=== PATIENT | female | born 1985 | race Caucasian/White ===

== ENCOUNTER 2019-02-05 12:29 | Day surgery (SDC) | payer OTHER ==
[~2019-02-05] VITALS: Ht 157.5 cm; Wt 53.3 kg
[2019-02-05 13:05] VITALS: Ht 157.5 cm; Wt 53.3 kg
[2019-02-05 13:33] VITALS: BP 99/54; PULSE 79; RESP 18
[2019-02-05] MEDS ORDERED: PROPOFOL 20 ML ONE (13:42)
[2019-02-05] MEDS ORDERED: LIDOCAINE 2% (SDV) 5 ML INJ ONE (13:42)
--- NOTE | 2019-02-05 13:42 | PREAC ---
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 on B-Marine Reported Medications [None] No Conflict Check 02/05/19 Meds reviewed: Yes Allergies Coded Allergies: No Known Allergy (Unverified , 02/05/19) Allergies Reviewed: Yes Labs/Studies Labs Reviewed: Reviewed by anesthesiologist test: Negative Pre-procedure Exam Last vitals Vital Signs Date Temp Pulse Resp B/P (MAP) Pulse Ox O2 O2 Flow FiO2 Time Delivery Rate 02/05/19 98.0 79 18 99/54 (69) 100 Room Air 13:33 Airway: Adequate mouth opening Mallampati: Mallampati I Teeth: Normal Lung: Normal Heart: Normal ASA Physical Status ASA physical status: 1 Emergency: None Planned Anesthetic General/MAC: MAC Pre-operative Attestations Prior to commencing anesthesia and surgery, the patient was re-evaluated, there was verification of: *The patient's identity *The results of appropriate recent lab work and preoperative vital signs *The above evaluation not changing prior to induction *Anesthetic plan, risk benefits, alternative and complications discussed with patient/family; questions answered; patient/family understands, accepts and wishes to proceed. GLO MORALES MD February 05, 2019 13:42
--- NOTE | 2019-02-05 13:50 | HPN ---
Date/Time of Note Date/Time of Note DATE: 02/05/19 TIME: 13:50 Interval H&P Admission Note Pt. seen H&P reviewed: No system changes CHANDA WHYTE February 05, 2019 13:50
[2019-02-05] MEDS ORDERED: KETOROLAC 30 MG INJ ONE (14:04)
--- NOTE | 2019-02-05 14:10 | PAC ---
Date/Time of Note Date/Time of Note DATE: 02/05/19 TIME: 14:10 Post-Anesthesia Notes Post-Anesthesia Note Last documented vital signs Vital Signs Date Temp Pulse Resp B/P (MAP) Pulse Ox O2 O2 Flow FiO2 Time Delivery Rate 02/05/19 98.0 79 18 99/54 (69) 100 Room Air 13:33 Activity: WNL Respiratory function: WNL Cardiovascular function: WNL Mental status: Baseline Pain reasonably controlled: Yes Hydration appropriate: Yes Nausea/Vomiting absent: Yes GLO MORALES MD February 05, 2019 14:10
[2019-02-05] MEDS ORDERED: ONDANSETRON 4 MG INJ IV PRN (14:30)
[2019-02-05] MEDS ORDERED: morphine 2 MG INJ IV PRN (14:30)
[2019-02-05 14:36] VITALS: BP 95/57; PULSE 63; RESP 18
== END 2019-02-05 15:03 | disposition home or self-care (01) ==
LOC: GIL 12:29
PROVIDERS: ATTEND Internal Medicine Gastroenterology
DX: K29.30 Chronic superficial gastritis without bleeding (principal)
CPT/HCPCS: 43239; 84703; 88305; 88312; J1885; Z7610